=== PATIENT | female | born 2000 | race African-American/Black ===

== ENCOUNTER 2024-10-17 06:36 | Emergency (ER) | payer MEDICAID, OTHER ==
[~2024-10-17] VITALS: Ht 167.6 cm; Wt 51.3 kg
--- NOTE | 2024-10-17 07:15 | ED.PDOC ---
[place]. trauma (HPI) HPI Comments 24 y/o F, presents to the ED for CC of right thumb pain s/p crushing injury. Patient states, she was closing her car door this morning (10/17/24) when she accidentally closed the door onto her right thumb. Patient reports, pain to worsen with movement; c/o current 8/10 pain to the right hand. Patient denies lacerations, abrasions, open wounds, or inability to flex or extend the right thumb. No other symptoms or modifying factors present at this time. Time Seen by MD: 07:15 Reviewed notes: Nurses Notes, Medications, Allergies Allergies: Coded Allergies: Ketorolac Tromethamine (Verified Allergy, Unknown, 10/17/24) Uncoded Allergies: MUSCLE RELAXERS (Allergy, Unknown, 10/17/24) Information Source: Patient Mode of Arrival: Ambulatory Severity: Moderate Timing: Minutes Duration: Since onset Prehospital treatment: None Location: (R) Hand (right thumb) Location of laceration: None Mechanism: Other (crushing) Associated signs and symtoms: None Past Medical History PAST MEDICAL HISTORY: Denies Past Medical History (Other): epilepsy Surgical History: Denies all surgeries SILVER BRAZER History: Denies all SILVER BRAZER Hx Family History Family History: Unknown Social History Smoker: Non-Smoker Alcohol: Denies ETOH Use Drugs: Denies Drug Use Lives In: Home Constitutional: denies: chills, diaphoresis, fatigue, fever, malaise, sweats, weakness, others EENTM: denies: blurred vision, double vision, ear bleeding, ear discharge, ear drainage, ear pain, ear ringing, eye pain, eye redness, hearing loss, mouth pain, mouth swelling, nasal discharge, nose bleeding, nose congestion, nose pain, photophobia, tearing, throat pain, throat swelling, voice changes, others Respiratory: denies: cough, hemoptysis, orthopnea, SOB at rest, shortness of breath, SOB with excertion, stridor, wheezing, others Cardiovascular: denies: chest pain, dizzy spells, diaphoresis, Dyspnea on exertion, edema, irregular heart beat, left arm pain, lightheadedness, palpitations, PND, syncope, others Gastrointestinal: denies: abdomen distended, abdominal pain, blood streaked bowels, constipated, diarrhea, dysphagia, difficulty swallowing, hematemesis, melena, nausea, poor appetite, poor fluid intake, rectal bleeding, rectal pain, vomiting, others Genitourinary: denies: abnormal vagina bleeding, burning, dyspareunia, dysuria, flank pain, frequency, hematuria, incontinence, pain, , vagina discharge, urgency, others Neurological: denies: dizziness, fainting, headache, left sided numbness, left sided weakness, numbness, paresthesia, pre-existing deficit, right sided numbnes s, right sided weakness, seizure, speech problems, tingling, tremors, weakness, others Musculoskeletal: denies: back pain, gout, joint pain, joint swelling, muscle pain, muscle stiffness, neck pain, others Integumetry: denies: bruises, change in color, change in hair/nails, dryness, laceration, lesions, lumps, rash, wounds, others Allergic/Immunocompromised: denies: Difficulty Healing, Frequent Infections, Hives, Itching, others Hematologic/Lymphatic: denies: anemia, blood clots, easy bleeding, easy bruising, swollen glands, others Endocrine: denies: excessive hunger, excessive sweating, excessive thirst, excessive urination, flushing, intolerance to cold, intolerance to heat, unexplained weight gain, unexplained weight loss, others Psychiatric: denies: anxiety, bipolar disorder, depression, hopeless, panic disorder, schizophrenia, sleepless, suicidal, others All Other Systems: Reviewed and Negative Physical Exam General Appearance: No Apparent Distress, Normal HEENT: Normal ENT Inspection, Pharynx Normal Neck: Full Range of Motion, Non-Tender, Normal, Normal Inspection Respiratory: Chest Non-Tender, Lungs Clear, No Accessory Muscle Use, No Respiratory Distress, Normal Breath Sounds Cardiovascular: No Edema, No Murmur, No Gallop, Normal Peripheral Pulses, Regular Rate/Rhythm Breast Exam: Deferred Gastrointestinal: No Organomegaly, Non Tender, No Pulsatile Mass, Normal Bowel Sounds, Soft Genitalia: Deferred Pelvic: Deferred Rectal: Deferred Extremities: No calf tenderness, Normal capillary refill, Normal inspection, Normal range of motion, Non-tender, No pedal edema Musculoskeletal : Location: Right Extremity Location: Thumb (Moderate swelling to the dorsal volar aspect of the right MCP. No pain to the PIP. No ecchymosis no open wounds. Pain with flexion-extension of the thumb due to pain. Neurovascular sensation intact. Cap refill less than 3 seconds.) Apperance: Swelling Neurologic: Alert, financial secretary II-XII nml as Tested, No Motor Deficits, Normal Affect, Normal Mood, No Sensory Deficits Cerebellar Function: Normal Reflexes: Normal Skin: Dry, Normal Color, Warm Lymphatic: No Adenopathy Was a procedure done? Was a procedure done?: No Differential Diagnosis Multiple Trauma: Fractures, Other (blunt trauma) X-Ray, Labs, Meds, VS Vital Signs Date Time Temp Pulse Resp B/P (MAP) Pulse Ox O2 Delivery O2 Flow Rate FiO2 10/17/24 07:44 97.8 82 18 132/86 (101) 100 97.8 10/17/24 07:14 98.5 60 20 122/74 (90) 98 98.5 Current Medications Medications (Trade) Dose Ordered Sig/Marcos Route Start Time Stop Time Status Last Admin Acetaminophen (Tylenol Tablet Or Capsule) 500 mg ONCE ONCE PO 10/17/24 08:30 10/17/24 08:32 DC 10/17/24 08:34 [place] [address] Ph: [phone] DIAGNOSTIC IMAGING Diagnostic Imaging Report : [id number] Signed PATIENT: YUVAL STALEY ACCT: [id number] UNIT: [id number] : 2000 LOC: ER ROOM / BED: / AGE / SEX: 24 / F ADM STATUS: REG ER SERVICE 0723 ORDERING PHYSICIAN: ZEKE HSU NP PROCEDURE(s): RHAN - R HAND 3 VIEW XRAY REASON: R/o fracture. Crushed injury to the thumb ORDER NUMBER(s): [id number], ACCESSION NUMBER(s): [id number] CLINICAL INFORMATION: Crushed injury to the thumb. Rule out fracture. TECHNIQUE: 3 views of the right hand were obtained. COMPARISON: None FINDINGS: No acute fracture or dislocation. No significant arthropathy. Adjacent soft tissues are unremarkable. IMPRESSION: No evidence of acute bony abnormality. ATED BY: RAJI MCNEILL DO DICTATED DATE/TIME: 10/17/24 08 SIGNED BY: RAJI MCNEILL DO SIGNED DATE/TIME: 10/17/24 0803 CC: X-Ray, Labs, Meds, VS Comment 24 y/o F, presents to the ED for CC of right thumb pain s/p crushing injury. Patient arrives alert and oriented, ABC's intact, afebrile, vital signs stable, saturating well in room air: Diagnostic imaging ordered by me and results interpreted by radiology : RIGHT HAND X-RAY No evidence of acute bony abnormality. Patient was given:_. Acetaminophen Tolerated medications with no adverse reaction After ROS and physical examination there were no red flags. Radial pulses 2+. There were no signs of arterial nerve damage. Findings are consistent with sprain. X-rays ordered, read by radiologist and reviewed by me Low likelihood of bony or more serious injury, VSS, pt stable Take IBU 600 w/ food as needed for pain Reviewed RICE management Avoid heavy lifting or strenuous activity Recommended range of motion exercises and limit heavy activity for 1 week If no improvement advised patient to return to the emergency department for follow-up. Discussed possibility of a occult fracture On reevaluation, patient had symptomatic improvement. Patient is stable for discharge at this time. External notes reviewed. Test results and diagnostic imaging interpreted. All diagnostic findings, discharge care, education and instructions provided Follow-up with PCP in 2 to 3 days Patient verbalized understanding and agreed to treatment plan Vital signs stable, afebrile, no acute distress noted Patient ambulatory with strong steady gait Advised to return precautions for any new or worsening symptoms, return to ER immediately for re-evaluation Patient is aware that the purpose of this visit was for an acute medical emergency requiring emergent stabilization. Chronic conditions, including malignancies have not been ruled out. Patient is instructed to follow up with PCP as directed and discharge instructions for continued care and workup. If unable to arrange follow-up, patient is to return to the emergency department for reassessment. Patient (parent or legal guardian if applicable) was given verbal and written discharge instructions and acknowledges understanding. Additional MDM Review of External, Non-ED records: External records reviewed. Discussion with independent historian (EMS, family) history obtained from the patient/parents (if applicable) at bedside Chronic conditions affecting care: None Social determinants of health affecting care: None Consideration of admission (observation or admission): I considered escalation of care to admission for this patient, however given the reassuring workup, the patient is safe for outpatient management. Discussion with the Radiology: No Tests considered but not performed: Prescription medication considered but not given: Time of 1ST Reevaluation: 07:45 Reevaluation 1ST: Improved Patient Education/Counseling: Diagnosis, Treatment Family Education/Counseling: No Family Present Departure 1 Departure Time of Disposition: 08:34 Impression: Primary Impression: Crushing injury of thumb, right Qualified Codes: S67.01XA - Crushing injury of right thumb, initial encounter Disposition: HOME / SELF CARE / HOMELESS Condition: Stable e-Prescriptions Ibuprofen (Ibuprofen) 600 Mg Tab 1 TAB PO TID for 10 Days, #30 TAB 0 Refills Prov: XIN HSUO F STUDENT NURSE 10/17/24 Discharged With: Self Critical Care Note Critical Care Time?: No Stability Stability form required: No Heart Score Heart Score: Heart Score Response (Comments) Value History N/A 0 EKG N/A 0 Age N/A 0 Risk Factors N/A 0 Troponin N/A 0 Total 0 I personally scribed for SHADIXINO F STUDENT NURSE ([email or web address]) on 10/17/24 at 07:15. Electronically submitted by Yina Calloway ([employer]). I personally scribed for SHADI,ZEKE F STUDENT NURSE ([email or web address]) on 10/17/24 at 07:18. Electronically submitted by Yina Calloway ([employer]). I personally scribed for SHADI,ZEKE F STUDENT NURSE (DVAYOMA) on 10/17/24 at 07:20. Electronically submitted by Yina Calloway ([email or web address]). I personally scribed for SHADI,ZEKE F STUDENT NURSE (DVAYOMA) on 10/17/24 at 07:26. Electronically submitted by Yina Calloway ([email or web address]). I personally scribed for SHADI,ZEKE F STUDENT NURSE (DVAYOMA) on 10/17/24 at 07:46. Electronically submitted by Yina Calloway ([email or web address]). I personally scribed for SHADI,ZEKE F STUDENT NURSE (DVAYOMA) on 10/17/24 at 08:32. Electronically submitted by Yina Calloway ([email or web address]). I personally scribed for SHADIZEKE F STUDENT NURSE (DVAYOMA) on 10/17/24 at 08:35. Electronically submitted by Yina Calloway ([email or web address]). I personally scribed for ZEKE HSU NP ([email or web address]) on 10/17/24 at 08:37. Electronically submitted by Yina Calloway ([email or web address]). ZEKE HSU NP Oct 17, 2024 07:15
[2024-10-17 07:44] VITALS: BP 132/86; PULSE 82; RESP 18; TEMP 97.8; O2SAT 100
--- NOTE | 2024-10-17 08:06 | DVH ---
CLINICAL INFORMATION: Crushed injury to the thumb. Rule out fracture. TECHNIQUE: 3 views of the right hand were obtained. COMPARISON: None FINDINGS: No acute fracture or dislocation. No significant arthropathy. Adjacent soft tissues are unr emarkable. IMPRESSION: No evidence of acute bony abnormality.
[2024-10-17] MEDS: ACETAMINOPHEN 500 MG TAB or CAP PO ONE (08:34)
[2024-10-17] MEDS ORDERED: IBUP-1454 PO (08:40)
== END 2024-10-17 08:37 | disposition home or self-care (01) ==
LOC: ER 06:36
DX: S67.01XA Crushing injury of right thumb, initial encounter (principal); G40.909 Epilepsy, unspecified, not intractable, without status epilepticus; W23.0XXA Caught, crushed, jammed, or pinched between moving objects, initial encounter; Y93.89 Activity, other specified; Y92.89 Other specified places as the place of occurrence of the external cause; Y99.8 Other external cause status
CPT/HCPCS: 73130